=== PATIENT | female | born 2000 | race Caucasian/White ===

== ENCOUNTER 2021-04-16 19:54 | Inpatient (IN) | payer MEDICAID ==
[~2021-04-16] VITALS: Ht 149.9 cm; Wt 49.4 kg
[~2021-04-16 19:54] MED LIST: NOCURR
[2021-04-16] MEDS ORDERED: ZOLPIDEM TARTRATE 10 MG TABLET PO PRN (22:45)
[2021-04-16] MEDS ORDERED: LORazepam 2 MG TABLET PO PRN (22:45)
[2021-04-16] MEDS ORDERED: HALOPERIDOL 5 MG TABLET PO PRN (22:45)
[2021-04-17 00:27] VITALS: BP 116/72
[2021-04-17] MEDS ORDERED: MAG HYDROX/AL HYDROX/SIMETH ES 30 ML SUSPENSION UDCUP PO PRN (07:45)
[2021-04-17] MEDS ORDERED: CloNIDine HCL 0.1 MG TABLET PO PRN (07:45)
[2021-04-17] MEDS ORDERED: NICOTINE 14 MG/24 HOUR PATCH TD PRN (07:45)
[2021-04-17] MEDS ORDERED: DOCUSATE SODIUM 100 MG CAPSULE PO PRN (07:45)
[2021-04-17] MEDS ORDERED: IBUPROFEN 400 MG TABLET PO PRN (07:45)
[2021-04-17] MEDS ORDERED: GuaiFENesin/D-METHORPHAN [SUGAR-FREE] 200-20MG/10 ML SYRUP UDCUP PO PRN (07:45)
[2021-04-17] MEDS ORDERED: PETROLATUM,WHITE 28 GM JELLY TP PRN (07:45)
[2021-04-17] MEDS ORDERED: LOPERAMIDE HCL 2 MG CAPSULE PO PRN (07:45)
[2021-04-17] MEDS ORDERED: ACETAMINOPHEN 325 MG TABLET PO PRN (07:45)
[2021-04-17] MEDS ORDERED: ALBUTEROL SULFATE HFA 90 MCG/PUFF 8 GM INHALER IH PRN (07:45)
[2021-04-17] MEDS ORDERED: ONDANSETRON HCL 4 MG TABLET PO PRN (07:45)
[2021-04-17] MEDS ORDERED: MAGNESIUM HYDROXIDE SUSPENSION 30 ML UDCUP PO PRN (07:45)
[2021-04-17 09:04] VITALS: BP 113/72
[2021-04-17 16:24] VITALS: BP 125/75
[2021-04-18 01:45] VITALS: BP 112/72
[2021-04-18 07:59] LABS: BASOPHILS % (AUTO) 0.5 % (0.0-2.0); HEMATOCRIT 42.6 % (36-46); HEMOGLOBIN 14.3 g/dL (12.0-16.0); LYMPHOCYTES # (AUTO) 1.7 K/uL (1.0-4.8); LYMPHOCYTES % (AUTO) 26.9 % (22.0-44.0); MEAN CORPUSCULAR HEMOGLOBIN 30.6 pg (26.0-34.0); MEAN CORPUSCULAR HGB CONC 33.5 G/dL (31.0-37.0); MEAN CORPUSCULAR VOLUME 91 fL (80-100); MONOCYTES # (AUTO) 0.7 K/uL (0.1-1.0); MONOCYTES % (AUTO) 11.1 % (2.0-9.0); NEUTROPHILS # (AUTO) 3.8 K/uL (1.8-7.7); NEUTROPHILS % (AUTO) 59.5 % (40.0-70.0); PLATELET COUNT (AUTO) 209 K/uL (150-450); RED BLOOD CELL COUNT(AUTO) 4.67 MIL/uL (4.00-5.20); RED CELL DISTRIBUTION WIDTH 12.2 % (11.5-14.5)
[2021-04-18 08:05] LABS: HEMOGLOBIN A1C 4.9 % (3.8-5.6)
[2021-04-18 08:07] VITALS: BP 111/73
[2021-04-18 08:39] LABS: ALANINE AMINOTRANSFERASE 31 U/L (12-78); ALBUMIN 4.2 g/dL (3.4-5.0); ALKALINE PHOSPHATASE 54 U/L (46-116); ANION GAP 11 mmol/L (8-16); ASPARTATE AMINOTRANSFERASE 21 U/L (15-37); BILIRUBIN,TOTAL 0.5 mg/dL (0.1-1.0); CALCIUM, TOTAL 8.8 mg/dL (8.8-10.5); CARBON DIOXIDE 27 mmol/L (22-29); CHLORIDE 105 mmol/L (98-107); CHOL/HDL RATIO 2.4 (3.9-5.7); CHOLESTEROL 133 mg/dL (131-200); CREATININE 0.75 mg/dL (0.60-1.30); FREE T4 (FREE THYROXINE) 1.19 ng/dL (0.76-1.46); GLOMERULAR FILTR. RATE CALC > 60 mL/min (>60); GLUCOSE,RANDOM 82 mg/dL (70-110); HCG,QUANTITATIVE < 1 mIU/mL (0-6); HDL CHOLESTEROL 56 mg/dL (40-60); LDL CHOL (CALC.) 68 mg/dL (0-130); SODIUM SERUM 143 mmol/L (136-145); THYROID STIMULATING HORMONE 1.33 uIU/mL (0.36-3.74); TOTAL PROTEIN, SERUM 7.2 g/dL (6.4-8.2); TRIGLYCERIDES 46 mg/dL (15-150); UREA NITROGEN, BLOOD 7 mg/dL (7-18)
== END 2021-04-18 15:15 | disposition home or self-care (01) | DRG 753 ==
LOC: B3A 22:38
PROVIDERS: ADMIT Psychiatry & Neurology Child & Adolescent Psychiatry; ATTEND Psychiatry & Neurology Child & Adolescent Psychiatry
DX: F31.30 Bipolar disorder, current episode depressed, mild or moderate severity, unspecified (principal); F10.10 Alcohol abuse, uncomplicated; K59.00 Constipation, unspecified; Z81.8 Family history of other mental and behavioral disorders; Z20.822 Contact with and (suspected) exposure to COVID-19; R10.13 Epigastric pain
CPT/HCPCS: 80053; 80061; 83036; 84439; 84443; 84702; 85025